=== PATIENT | male | born 1960 | race Two or more races ===

== ENCOUNTER 2023-06-18 11:58 | Inpatient (IN) | payer MEDICARE, OTHER ==
[~2023-06-18] VITALS: Ht 190.5 cm; Wt 135.6 kg
[2023-06-18] MEDS ORDERED: DIGO125T PO (12:44)
[2023-06-18] MEDS ORDERED: INSU100I26 SQ ×2 (12:44)
[2023-06-18] MEDS ORDERED: DIVA125C5 PO (12:44)
[2023-06-18] MEDS ORDERED: DONE10TA44 PO (12:44)
[2023-06-18] MEDS ORDERED: MAGN400O6 PO (12:44)
[2023-06-18] MEDS ORDERED: NA P133E RC (12:44)
[2023-06-18] MEDS ORDERED: FURO20TA4 PO (12:44)
[2023-06-18] MEDS ORDERED: INSU100V39 SQ ×3 (12:44)
[2023-06-18] MEDS ORDERED: BISA10SU11 RC (12:44)
[2023-06-18] MEDS ORDERED: ASCO500T21 PO (12:44)
[2023-06-18] MEDS ORDERED: PANT40TA2 PO (12:44)
[2023-06-18] MEDS ORDERED: TOPI25TA49 PO (12:44)
[2023-06-18] MEDS ORDERED: ACET-868 PO (12:44)
[2023-06-18] MEDS ORDERED: SACU1TAB PO (12:44)
[2023-06-18] MEDS ORDERED: APIX5TAB PO (12:44)
[2023-06-18] MEDS ORDERED: AMIO100T4 PO (12:44)
[2023-06-18] MEDS ORDERED: ATOR20TA PO (12:44)
[2023-06-18] MEDS ORDERED: ESCI10TA PO (12:44)
[2023-06-18] MEDS ORDERED: CALC500T53 PO (12:44)
[2023-06-18] MEDS ORDERED: DIGO250T PO (12:44)
[2023-06-18 12:57] LABS: BASOPHILS % (AUTO) 0.6 % (0.0-2.0); EOSINOPHILS # (AUTO) 0.1 K/uL (0.0-0.7); EOSINOPHILS % (AUTO) 1.2 % (0.0-6.0); HEMATOCRIT 42 % (39-51); HEMOGLOBIN 13.6 g/dL (13.5-17.5); LYMPHOCYTES # (AUTO) 1.3 K/uL (0.8-4.8); LYMPHOCYTES % (AUTO) 18.4 % (20.0-44.0); MEAN CORPUSCULAR HEMOGLOBIN 29 PG (26.0-33.0); MEAN CORPUSCULAR HGB CONC 33 g/dl (31.0-36.0); MEAN CORPUSCULAR VOLUME 89 fL (80-96); MONOCYTES # (AUTO) 0.6 K/uL (0.1-1.30); MONOCYTES % (AUTO) 7.6 % (2.0-12.0); NEUTROPHILS # (AUTO) 5.2 K/uL (1.8-8.9); NEUTROPHILS % (AUTO) 72.2 % (43.0-81.0); PLATELET COUNT (AUTO) 340 K/uL (150-450); RED BLOOD CELL COUNT(AUTO) 4.65 MIL/uL (4.5-6.0); RED CELL DISTRIBUTION WIDTH 14.4 % (11.5-15.0); WHITE BLOOD COUNT (AUTO) 7.2 K/uL (4.3-11.0)
[2023-06-18 13:08] LABS: CARBON DIOXIDE 30 mmol/L (21-32); CHLORIDE 102 mmol/L (98-107); CREATININE 1.5 mg/dL (0.6-1.3); GLUCOSE 263 mg/dL (74-106); POTASSIUM 4.4 mmol/L (3.5-5.1); SODIUM SERUM 138 mmol/L (136-145); UREA NITROGEN, BLOOD 15 mg/dL (7-18)
[2023-06-18 13:13] LABS: ALANINE AMINOTRANSFERASE 20 U/L (12-78); ALBUMIN 2.9 g/dL (3.4-5.0); ALCOHOL, BLOOD < 3 mg/dL (0-10); ALKALINE PHOSPHATASE 108 U/L (46-116); ASPARTATE AMINOTRANSFERASE 9 U/L (15-37); BILIRUBIN,DIRECT 0.1 mg/dL (0.0-0.2); BILIRUBIN,TOTAL 0.2 mg/dL (0.2-1.0); TOTAL PROTEIN, SERUM 7.4 g/dL (6.4-8.2)
[2023-06-18 13:15] LABS: ACETAMINOPHEN <10 ug/ml (10-30); SALICYLATE 0.5 mg/dL (2.8-20.0)
[2023-06-18 15:41] LABS: APPEARANCE,URINE CLEAR (CLEAR); BILIRUBIN,URINE NEGATIVE (NEGATIVE); BLOOD, URINE NEGATIVE Ery/uL (NEGATIVE); COLOR,URINE YELLOW (YELLOW); KETONES,URINE 1+ mg/dL (NEGATIVE); LEUKOCYTE ESTERASE ,URINE NEGATIVE (NEGATIVE); NITRITE, URINE NEGATIVE (NEGATIVE); PH,URINE 6.5 (5.0-8.0); PROTEIN,URINE 2+ mg/dl (NEGATIVE); UGLUCOSE 3+ mg/dL (NEGATIVE)
[2023-06-18 15:55] LABS: AMPHETAMINE, URINE NEGATIVE (NEGATIVE); BARBITURATE, URINE NEGATIVE (NEGATIVE); BENZODIAZEPINE, URINE NEGATIVE (NEGATIVE); CANNABINOID, URINE NEGATIVE (NEGATIVE); COCCAINE, URINE NEGATIVE (NEGATIVE); OPIATE, URINE NEGATIVE (NEGATIVE); PHENCYCLIDINE SCREEN,URINE NEGATIVE (NEGATIVE)
[2023-06-18] MEDS ORDERED: MAG HYDROX/AL HYDROX/SIMETH 30 ML UDC PO PRN (19:00)
[2023-06-18] MEDS ORDERED: ZOLPIDEM TARTRATE 5 MG TABLET PO PRN (19:00)
[2023-06-18] MEDS ORDERED: BLOOD SUGAR DIAGNOSTIC 1 EACH STRIP IN ONE (19:00)
[2023-06-18] MEDS ORDERED: QUETIAPINE FUMARATE 25 MG TABLET PO PRN (19:00)
[2023-06-18] MEDS ORDERED: MAGNESIUM HYDROXIDE 30 ML UDC PO PRN (19:00)
[2023-06-18] MEDS ORDERED: ACETAMINOPHEN 325 MG TABLET PO PRN ×2 (19:00→19:30)
[2023-06-18 19:04] VITALS: BP 156/83; TEMP 98.7; O2SAT 97
[2023-06-18] MEDS ORDERED: INSULIN REGULAR, HUMAN 100 UNIT/ML 3 ML VIAL SQ PRN (19:30)
[2023-06-18] MEDS ORDERED: BISACODYL SUPP (10 MG) 10 MG/SUPP.RECT SUPP.RECT RC PRN (19:30)
[2023-06-18] MEDS ORDERED: DEXTROSE 50%-WATER 50 ML DISP.SYRIN IV PRN ×2 (19:30→20:30)
[2023-06-18 19:37] LABS: ADD URINE CULTURE NO; BACTERIA,URINE None seen /HPF (None Seen); MUCUS,URINE Moderate /LPF (None Seen); RBC,URINE NONE SEEN /HPF (0-2); SQUAMOUS EPITHELIAL CELL,UR None Seen /HPF (None Seen); WBC,URINE NONE SEEN /HPF (0-3)
[2023-06-18 21:24] VITALS: BP 163/74; TEMP 98.2; O2SAT 98
[2023-06-18] MEDS: DONEPEZIL 5 MG TABLET PO SCH (21:45)
[2023-06-18] MEDS: ATORVASTATIN 40 MG TABLET PO SCH (21:45)
[2023-06-18] MEDS: BLOOD SUGAR DIAGNOSTIC 1 EACH STRIP IN SCH (21:54)
[2023-06-18] MEDS: INSULIN REGULAR, HUMAN 100 UNIT/ML 3 ML VIAL SQ PRN (21:58)
[2023-06-18] MEDS ORDERED: BLOOD SUGAR DIAGNOSTIC 1 EACH STRIP IN SCH (22:00)
[2023-06-18] MEDS ORDERED: INSULIN GLARGINE, 100 UNIT/ML CARTRIDGE SQ SCH (22:00)
[2023-06-18 23:00] VITALS: BP 148/83; TEMP 98.2; O2SAT 97
[2023-06-19 08:00] VITALS: BP 142/90; TEMP 97.7; O2SAT 98
[2023-06-19 08:10] LABS: CHOLESTEROL 119 mg/dL (<200); HDL CHOLESTEROL 37 mg/dL (40-60); LDL 55 mg/dL (0-99); TRIGLYCERIDES 197 mg/dL (30-150)
[2023-06-19 08:12] LABS: ALBUMIN 2.6 g/dL (3.4-5.0); BILIRUBIN,TOTAL 0.5 mg/dL (0.2-1.0); CALCIUM, SERUM 8.6 mg/dL (8.5-10.1); CREATININE 1.2 mg/dL (0.6-1.3); POTASSIUM 3.8 mmol/L (3.5-5.1); TOTAL PROTEIN, SERUM 6.8 g/dL (6.4-8.2)
[2023-06-19] MEDS: BLOOD SUGAR DIAGNOSTIC 1 EACH STRIP IN SCH ×4 (08:30→22:21)
[2023-06-19] MEDS: INSULIN REGULAR, HUMAN 100 UNIT/ML 3 ML VIAL SQ PRN ×4 (08:34→22:26)
[2023-06-19] MEDS ORDERED: INSULIN GLARGINE, 100 UNIT/ML CARTRIDGE SQ SCH (09:00)
[2023-06-19] MEDS: ASCORBIC ACID 500 MG TABLET PO SCH (10:22)
[2023-06-19] MEDS: AMIODARONE HCL 200 MG TABLET PO SCH (10:24)
[2023-06-19] MEDS: FUROSEMIDE 20 MG TABLET PO SCH ×2 (10:24→17:25)
[2023-06-19] MEDS: PANTOPRAZOLE 40 MG TABLET.DR PO SCH (10:24)
[2023-06-19] MEDS: CALCIUM CARBONATE (1250) 500 MG TABLET PO SCH (10:24)
[2023-06-19] MEDS: APIXABAN 5 MG TABLET PO SCH ×2 (10:29→17:24)
[2023-06-19] MEDS: SACUBITRIL/VALSARTAN 1 EACH TABLET PO SCH ×2 (10:31→17:26)
[2023-06-19] MEDS: DIGOXIN 0.25 MG TABLET PO SCH (10:32)
[2023-06-19 16:00] VITALS: BP 148/53; TEMP 98.7; O2SAT 97
[2023-06-19] MEDS ORDERED: NEUTRA PHOS 1 POWD.PACKET PO ONE (16:00)
[2023-06-19 16:15] LABS: CREATININE, URINE 81.3 MG/DL (30.0-125.0); URINE TOTAL PROTEIN 86.6 mg/dL (0-11.9)
[2023-06-19] MEDS: risperiDONE 1 MG TABLET PO SCH (17:25)
[2023-06-19 20:24] VITALS: BP 156/77; TEMP 97.7; O2SAT 97
[2023-06-19] MEDS: DONEPEZIL 5 MG TABLET PO SCH (21:37)
[2023-06-19] MEDS: DIVALPROEX SODIUM 125 MG TABLET.DR PO SCH (21:37)
[2023-06-19] MEDS: ATORVASTATIN 40 MG TABLET PO SCH (21:38)
[2023-06-20 08:00] VITALS: BP 145/75; TEMP 98.2; O2SAT 96
[2023-06-20] MEDS: BLOOD SUGAR DIAGNOSTIC 1 EACH STRIP IN SCH ×4 (09:24→22:39)
[2023-06-20] MEDS: risperiDONE 1 MG TABLET PO SCH ×2 (09:24→17:19)
[2023-06-20] MEDS: DIGOXIN 0.25 MG TABLET PO SCH (09:25)
[2023-06-20] MEDS: FUROSEMIDE 20 MG TABLET PO SCH ×2 (09:25→17:19)
[2023-06-20] MEDS: SACUBITRIL/VALSARTAN 1 EACH TABLET PO SCH ×2 (09:26→17:24)
[2023-06-20] MEDS: CALCIUM CARBONATE (1250) 500 MG TABLET PO SCH (09:27)
[2023-06-20] MEDS: DIVALPROEX SODIUM 125 MG TABLET.DR PO SCH ×3 (09:27→21:04)
[2023-06-20] MEDS: ASCORBIC ACID 500 MG TABLET PO SCH (09:27)
[2023-06-20] MEDS: AMIODARONE HCL 200 MG TABLET PO SCH (09:28)
[2023-06-20] MEDS: PANTOPRAZOLE 40 MG TABLET.DR PO SCH (09:40)
[2023-06-20] MEDS: APIXABAN 5 MG TABLET PO SCH ×2 (09:40→17:24)
[2023-06-20] MEDS: INSULIN REGULAR, HUMAN 100 UNIT/ML 3 ML VIAL SQ PRN ×3 (11:29→23:01)
[2023-06-20 16:00] VITALS: BP 130/75; TEMP 97.9; O2SAT 97
[2023-06-20 20:00] VITALS: BP 103/80; TEMP 97.8; O2SAT 96
[2023-06-20] MEDS: ATORVASTATIN 40 MG TABLET PO SCH (22:56)
[2023-06-20] MEDS: DONEPEZIL 5 MG TABLET PO SCH (22:57)
[2023-06-21 08:00] VITALS: BP 120/68; TEMP 97.9; O2SAT 94
[2023-06-21] MEDS: BLOOD SUGAR DIAGNOSTIC 1 EACH STRIP IN SCH ×4 (08:25→22:37)
[2023-06-21] MEDS: ASCORBIC ACID 500 MG TABLET PO SCH (08:42)
[2023-06-21] MEDS: AMIODARONE HCL 200 MG TABLET PO SCH (08:42)
[2023-06-21] MEDS: DIVALPROEX SODIUM 125 MG TABLET.DR PO SCH ×3 (08:42→20:51)
[2023-06-21] MEDS: FUROSEMIDE 20 MG TABLET PO SCH ×2 (08:43→16:20)
[2023-06-21] MEDS: PANTOPRAZOLE 40 MG TABLET.DR PO SCH (08:43)
[2023-06-21] MEDS: AMLODIPINE BESYLATE 2.5 MG TABLET PO SCH (08:43)
[2023-06-21] MEDS: CALCIUM CARBONATE (1250) 500 MG TABLET PO SCH (08:43)
[2023-06-21] MEDS: APIXABAN 5 MG TABLET PO SCH ×2 (08:44→16:20)
[2023-06-21] MEDS: SACUBITRIL/VALSARTAN 1 EACH TABLET PO SCH ×2 (08:49→16:20)
[2023-06-21] MEDS: risperiDONE 1 MG TABLET PO SCH ×2 (08:49→16:19)
[2023-06-21] MEDS: INSULIN REGULAR, HUMAN 100 UNIT/ML 3 ML VIAL SQ PRN ×4 (08:51→22:40)
[2023-06-21] MEDS ORDERED: DIGOXIN 0.125 MG TABLET PO SCH (09:00)
[2023-06-21 16:00] VITALS: BP 127/69; TEMP 98.9; O2SAT 100
[2023-06-21 20:00] VITALS: BP 132/71; TEMP 97.5; O2SAT 96
[2023-06-21] MEDS: DONEPEZIL 5 MG TABLET PO SCH (22:22)
[2023-06-21] MEDS: ATORVASTATIN 40 MG TABLET PO SCH (22:23)
[2023-06-22 07:26] LABS: ALBUMIN 2.6 g/dL (3.4-5.0); BILIRUBIN,TOTAL 0.3 mg/dL (0.2-1.0); CALCIUM, SERUM 8.4 mg/dL (8.5-10.1); CREATININE 1.2 mg/dL (0.6-1.3); POTASSIUM 3.9 mmol/L (3.5-5.1); TOTAL PROTEIN, SERUM 6.8 g/dL (6.4-8.2)
[2023-06-22 08:00] VITALS: BP 137/91; TEMP 98; O2SAT 98
[2023-06-22] MEDS: BLOOD SUGAR DIAGNOSTIC 1 EACH STRIP IN SCH ×2 (08:17→12:50)
[2023-06-22] MEDS: SACUBITRIL/VALSARTAN 1 EACH TABLET PO SCH (08:34)
[2023-06-22] MEDS: FUROSEMIDE 20 MG TABLET PO SCH (08:36)
[2023-06-22] MEDS: AMLODIPINE BESYLATE 2.5 MG TABLET PO SCH (08:36)
[2023-06-22] MEDS: CALCIUM CARBONATE (1250) 500 MG TABLET PO SCH (08:37)
[2023-06-22] MEDS: APIXABAN 5 MG TABLET PO SCH (08:37)
[2023-06-22] MEDS: DIVALPROEX SODIUM 125 MG TABLET.DR PO SCH ×2 (08:37→14:49)
[2023-06-22] MEDS: risperiDONE 1 MG TABLET PO SCH (08:38)
[2023-06-22] MEDS: AMIODARONE HCL 200 MG TABLET PO SCH (08:38)
[2023-06-22] MEDS: PANTOPRAZOLE 40 MG TABLET.DR PO SCH (08:38)
[2023-06-22] MEDS: ASCORBIC ACID 500 MG TABLET PO SCH (08:38)
[2023-06-22] MEDS: INSULIN REGULAR, HUMAN 100 UNIT/ML 3 ML VIAL SQ PRN ×2 (08:40→12:51)
[2023-06-22] MEDS ORDERED: DIGOXIN 0.25 MG TABLET PO SCH (09:00)
[2023-06-22 12:00] VITALS: BP_SYST 80; BP_SYST 87; BP_DIAS 57; BP_DIAS 85; TEMP 98.3; O2SAT 95
[2023-06-22] MEDS ORDERED: IV NS 0.9% 1,000 ML IV ONE (12:30)
[2023-06-22 12:45] VITALS: BP_SYST 102; BP_SYST 108; BP_DIAS 44; BP_DIAS 72
[2023-06-22 13:45] VITALS: BP_SYST 148; BP_SYST 167; BP_DIAS 70; BP_DIAS 75
[2023-06-22 15:00] VITALS: BP 169/83; TEMP 97.7; O2SAT 96
[2023-06-22 16:00] VITALS: BP 167/98; TEMP 97.7; O2SAT 98
[2023-06-22] MEDS ORDERED: INSU100V30 SQ (17:17)
[2023-06-22] MEDS ORDERED: DEXT50DI8 IV (17:17)
[2023-06-22] MEDS ORDERED: BLOO-668 IN (17:17)
[2023-06-22] MEDS ORDERED: INSU100V7 SQ (17:17)
[2023-06-22] MEDS ORDERED: RISP1TAB97 PO (17:17)
[2023-06-22] MEDS ORDERED: AMLO2.5T4 PO (17:17)
[2023-06-22] MEDS ORDERED: MAG30ORA PO (17:17)
[2023-06-22] MEDS ORDERED: DIVA125T32 PO (17:17)
[2023-06-22] MEDS ORDERED: INSULIN GLARGINE, 100 UNIT/ML CARTRIDGE SQ SCH (22:00)
== END 2023-06-22 17:10 | disposition short-term general hospital (02) | DRG 885 ==
LOC: ER 11:58 → GPS 18:33
PROVIDERS: ADMIT Psychiatry & Neurology Psychiatry; ATTEND Nurse Practitioner Acute Care
DX: F31.89 Other bipolar disorder (principal); N17.9 Acute kidney failure, unspecified; N18.9 Chronic kidney disease, unspecified; E11.65 Type 2 diabetes mellitus with hyperglycemia; E44.0 Moderate protein-calorie malnutrition; F03.93 Unspecified dementia, unspecified severity, with mood disturbance; G93.40 Encephalopathy, unspecified; F03.918 Unspecified dementia, unspecified severity, with other behavioral disturbance; E22.2 Syndrome of inappropriate secretion of antidiuretic hormone; I69.354 Hemiplegia and hemiparesis following cerebral infarction affecting left non-dominant side; S06.2XAA Diffuse traumatic brain injury with loss of consciousness status unknown, initial encounter; E66.01 Morbid (severe) obesity due to excess calories; Z68.37 Body mass index [BMI] 37.0-37.9, adult; R29.6 Repeated falls; Z91.81 History of falling; Z86.79 Personal history of other diseases of the circulatory system; Z79.4 Long term (current) use of insulin; Z95.5 Presence of coronary angioplasty implant and graft; Z95.1 Presence of aortocoronary bypass graft; Z87.891 Personal history of nicotine dependence; Z96.652 Presence of left artificial knee joint; I50.9 Heart failure, unspecified; I25.10 Atherosclerotic heart disease of native coronary artery without angina pectoris; I48.91 Unspecified atrial fibrillation; W19.XXXA Unspecified fall, initial encounter; Y93.89 Activity, other specified; Y92.231 Patient bathroom in hospital as the place of occurrence of the external cause; Y99.8 Other external cause status; S00.01XA Abrasion of scalp, initial encounter; M89.8X9 Other specified disorders of bone, unspecified site; Z79.01 Long term (current) use of anticoagulants; Z79.899 Other long term (current) drug therapy
CPT/HCPCS: 36415; 70450-TC; 71045-TC; 73080-TC; 80048-TC; 80053-TC; 80061-TC; 80076-TC; 80164-TC; 81001; 82570-TC; 82962-TC; 83935-TC; 84300-TC; 84484-TC; 85025-TC; 97116-TC; 97530-TC; A4223; G0480; J1815; J7030

== ENCOUNTER 2023-06-22 16:45 | Inpatient (IN) | payer MEDICARE, OTHER ==
[~2023-06-22] VITALS: Ht 180.3 cm; Wt 136.1 kg
[2023-06-22] VITALS (10 sets, daily range): BP systolic 116–184; BP diastolic 66–113; TEMP 98.1; O2SAT 92–98
[~2023-06-22 16:45] MED LIST: ACET-868 PO; AMIO100T4 PO; APIX5TAB PO; ASCO500T21 PO; ATOR20TA PO; BISA10SU11 RC; CALC500T53 PO; DIGO125T PO; DIGO250T PO; DIVA125C5 PO; DONE10TA44 PO; ESCI10TA PO; FURO20TA4 PO; INSU100I26 SQ; INSU100V39 SQ; MAGN400O6 PO; NA P133E RC; PANT40TA2 PO; SACU1TAB PO; TOPI25TA49 PO
[2023-06-22] MEDS ORDERED: INSU100V7 SQ (17:17)
[2023-06-22] MEDS ORDERED: INSU100V30 SQ (17:17)
[2023-06-22] MEDS ORDERED: AMLO2.5T4 PO (17:17)
[2023-06-22] MEDS ORDERED: DEXT50DI8 IV (17:17)
[2023-06-22] MEDS ORDERED: DIVA125T32 PO (17:17)
[2023-06-22] MEDS ORDERED: MAG30ORA PO (17:17)
[2023-06-22] MEDS ORDERED: RISP1TAB97 PO (17:17)
[2023-06-22] MEDS ORDERED: BLOO-668 IN (17:17)
[2023-06-22] MEDS ORDERED: DEXTROSE 50%-WATER 50 ML DISP.SYRIN IV PRN (17:30)
[2023-06-22] MEDS ORDERED: HYDROCODONE/APAP 5/325MG TABLET PO PRN (17:30)
[2023-06-22] MEDS ORDERED: ONDANSETRON HCL/PF 4 MG/2 ML VIAL IVP PRN (17:30)
[2023-06-22] MEDS ORDERED: MAGNESIUM HYDROXIDE 30 ML UDC PO PRN (17:30)
[2023-06-22] MEDS ORDERED: Z GUARD REMEDY 4 OZ OINT TP PRN (17:30)
[2023-06-22] MEDS: BLOOD SUGAR DIAGNOSTIC 1 EACH STRIP IN SCH ×2 (17:30→21:30)
[2023-06-22] MEDS ORDERED: ACETAMINOPHEN 325 MG TABLET PO PRN (17:30)
[2023-06-22] MEDS: INSULIN REGULAR, HUMAN 100 UNIT/ML 3 ML VIAL SQ PRN ×2 (18:35→22:28)
[2023-06-22] MEDS: hydrALAZINE HCL IV 20 MG VIAL IV PRN (18:39)
[2023-06-22] MEDS: DIVALPROEX SODIUM 125 MG TABLET.DR PO SCH (21:24)
[2023-06-22] MEDS ORDERED: ATORVASTATIN 10 MG TABLET PO SCH (22:00)
[2023-06-22] MEDS ORDERED: DONEPEZIL 5 MG TABLET PO SCH (22:00)
[2023-06-22] MEDS ORDERED: INSULIN GLARGINE, 100 UNIT/ML CARTRIDGE SQ SCH (22:00)
[2023-06-23] VITALS (30 sets, daily range): BP systolic 94–172; BP diastolic 37–125; TEMP 97.1–98.3; O2SAT 93–99
[2023-06-23] MEDS: hydrALAZINE HCL IV 20 MG VIAL IV PRN ×2 (02:37→14:06)
[2023-06-23 04:12] LABS: BASOPHILS % (AUTO) 0.4 % (0.0-2.0); EOSINOPHILS # (AUTO) 0.1 K/uL (0.0-0.7); EOSINOPHILS % (AUTO) 1.2 % (0.0-6.0); HEMATOCRIT 38 % (39-51); HEMOGLOBIN 12.8 g/dL (13.5-17.5); LYMPHOCYTES # (AUTO) 1.8 K/uL (0.8-4.8); LYMPHOCYTES % (AUTO) 19.2 % (20.0-44.0); MEAN CORPUSCULAR HEMOGLOBIN 30 PG (26.0-33.0); MEAN CORPUSCULAR HGB CONC 34 g/dl (31.0-36.0); MEAN CORPUSCULAR VOLUME 88 fL (80-96); MONOCYTES # (AUTO) 0.7 K/uL (0.1-1.30); MONOCYTES % (AUTO) 7.5 % (2.0-12.0); NEUTROPHILS # (AUTO) 6.6 K/uL (1.8-8.9); NEUTROPHILS % (AUTO) 71.7 % (43.0-81.0); PLATELET COUNT (AUTO) 323 K/uL (150-450); RED BLOOD CELL COUNT(AUTO) 4.34 MIL/uL (4.5-6.0); RED CELL DISTRIBUTION WIDTH 13.6 % (11.5-15.0); WHITE BLOOD COUNT (AUTO) 9.2 K/uL (4.3-11.0)
[2023-06-23 04:20] LABS: CALCIUM, SERUM 8.7 mg/dL (8.5-10.1); CREATININE 1.2 mg/dL (0.6-1.3); PHOSPHORUS 3.1 mg/dL (2.5-4.9); POTASSIUM 3.9 mmol/L (3.5-5.1)
[2023-06-23] MEDS ORDERED: PANTOPRAZOLE 40 MG TABLET.DR PO SCH (07:30)
[2023-06-23] MEDS: INSULIN REGULAR, HUMAN 100 UNIT/ML 3 ML VIAL SQ PRN ×3 (08:16→16:38)
[2023-06-23] MEDS: BLOOD SUGAR DIAGNOSTIC 1 EACH STRIP IN SCH ×3 (08:21→16:36)
[2023-06-23] MEDS: DIVALPROEX SODIUM 125 MG TABLET.DR PO SCH ×2 (08:25→13:09)
[2023-06-23] MEDS: risperiDONE 1 MG TABLET PO SCH ×2 (08:25→16:22)
[2023-06-23] MEDS: SACUBITRIL/VALSARTAN 1 EACH TABLET PO SCH ×2 (08:26→16:22)
[2023-06-23] MEDS ORDERED: AMIODARONE HCL 200 MG TABLET PO SCH (09:00)
[2023-06-23] MEDS ORDERED: DIGOXIN 0.125 MG TABLET PO SCH (09:00)
[2023-06-23] MEDS ORDERED: ASCORBIC ACID 500 MG TABLET PO SCH (09:00)
[2023-06-23] MEDS ORDERED: AMLODIPINE BESYLATE 2.5 MG TABLET PO SCH (09:00)
[2023-06-23] MEDS ORDERED: LEVETIRACETAM (250 MG) 250 MG TABLET PO SCH (13:00)
[2023-06-25] MEDS ORDERED: DIGOXIN 0.125 MG TABLET PO SCH (09:00)
== END 2023-06-23 19:30 | disposition short-term general hospital (02) | DRG 86 ==
LOC: ICU 16:45
PROVIDERS: ADMIT Nurse Practitioner Family; ATTEND Nurse Practitioner Family
PROC: 30233K1 Transfusion of Nonautologous Frozen Plasma into Peripheral Vein, Percutaneous Approach (ICD-10-PCS; principal; 2023-06-22)
DX: S06.360A Traumatic hemorrhage of cerebrum, unspecified, without loss of consciousness, initial encounter (principal); E44.0 Moderate protein-calorie malnutrition; E87.1 Hypo-osmolality and hyponatremia; G93.49 Other encephalopathy; F03.93 Unspecified dementia, unspecified severity, with mood disturbance; F03.94 Unspecified dementia, unspecified severity, with anxiety; N17.9 Acute kidney failure, unspecified; I69.354 Hemiplegia and hemiparesis following cerebral infarction affecting left non-dominant side; F03.92 Unspecified dementia, unspecified severity, with psychotic disturbance; G93.89 Other specified disorders of brain; R79.89 Other specified abnormal findings of blood chemistry; F31.9 Bipolar disorder, unspecified; I25.10 Atherosclerotic heart disease of native coronary artery without angina pectoris; F41.9 Anxiety disorder, unspecified; F29 Unspecified psychosis not due to a substance or known physiological condition; E66.01 Morbid (severe) obesity due to excess calories; Z68.37 Body mass index [BMI] 37.0-37.9, adult; E11.65 Type 2 diabetes mellitus with hyperglycemia; N18.9 Chronic kidney disease, unspecified; E11.22 Type 2 diabetes mellitus with diabetic chronic kidney disease; Z91.81 History of falling; Z86.79 Personal history of other diseases of the circulatory system; Z87.891 Personal history of nicotine dependence; Z79.4 Long term (current) use of insulin; Z79.01 Long term (current) use of anticoagulants; Z95.1 Presence of aortocoronary bypass graft; Z95.5 Presence of coronary angioplasty implant and graft; Z96.659 Presence of unspecified artificial knee joint; W19.XXXA Unspecified fall, initial encounter; Y92.9 Unspecified place or not applicable; I48.91 Unspecified atrial fibrillation; I50.9 Heart failure, unspecified; G47.33 Obstructive sleep apnea (adult) (pediatric); F39 Unspecified mood [affective] disorder; Z79.899 Other long term (current) drug therapy
CPT/HCPCS: 36415; 70450-TC; 80048-TC; 83735-TC; 84100-TC; 85025-TC; 86850-TC; 87081-TC; 97116-TC; 97530-TC; G0378; J0360; J1815; J7050; P9017

== ENCOUNTER 2023-06-28 23:39 | Inpatient (IN) | payer MEDICARE, OTHER ==
[~2023-06-28] VITALS: Ht 175.3 cm; Wt 136.5 kg
[~2023-06-28 23:39] MED LIST changes: +AMLO2.5T4 PO; +BLOO-668 IN; +DEXT50DI8 IV; -DIVA125C5 PO; +DIVA125T32 PO; -ESCI10TA PO; -FURO20TA4 PO; -INSU100I26 SQ; +INSU100V30 SQ; -INSU100V39 SQ; +INSU100V7 SQ; +MAG30ORA PO; -NA P133E RC; +RISP1TAB97 PO; -TOPI25TA49 PO
[2023-06-29] MEDS ORDERED: DEXTROSE 50%-WATER 50 ML DISP.SYRIN IV PRN (05:30)
[2023-06-29] MEDS ORDERED: MAG HYDROX/AL HYDROX/SIMETH 30 ML UDC PO PRN ×2 (05:30)
[2023-06-29] MEDS ORDERED: Z GUARD REMEDY 4 OZ OINT TP PRN (05:30)
[2023-06-29] MEDS ORDERED: MAGNESIUM HYDROXIDE 30 ML UDC PO PRN ×2 (05:30)
[2023-06-29] MEDS ORDERED: ACETAMINOPHEN 325 MG TABLET PO PRN (05:30)
[2023-06-29] MEDS ORDERED: BISACODYL SUPP (10 MG) 10 MG/SUPP.RECT SUPP.RECT RC PRN (05:30)
[2023-06-29] MEDS ORDERED: ONDANSETRON HCL/PF 4 MG/2 ML VIAL IVP PRN (05:30)
[2023-06-29] MEDS ORDERED: ZOLPIDEM TARTRATE 5 MG TABLET PO PRN (05:30)
[2023-06-29] MEDS ORDERED: FURO40TA5 PO (06:32)
[2023-06-29] MEDS ORDERED: ESCI10TA PO (06:32)
[2023-06-29] MEDS ORDERED: LEVE500V IV (06:32)
[2023-06-29] MEDS ORDERED: TOPI50TA24 PO (06:33)
[2023-06-29] MEDS: BLOOD SUGAR DIAGNOSTIC 1 EACH STRIP IN SCH ×4 (06:57→21:01)
[2023-06-29] MEDS: INSULIN REGULAR, HUMAN 100 UNIT/ML 3 ML VIAL SQ PRN ×4 (06:58→22:34)
[2023-06-29 08:02] LABS: BASOPHILS % (AUTO) 0.3 % (0.0-2.0); EOSINOPHILS # (AUTO) 0.2 K/uL (0.0-0.7); EOSINOPHILS % (AUTO) 3.1 % (0.0-6.0); HEMATOCRIT 38 % (39-51); HEMOGLOBIN 12.7 g/dL (13.5-17.5); LYMPHOCYTES # (AUTO) 1.5 K/uL (0.8-4.8); LYMPHOCYTES % (AUTO) 19.7 % (20.0-44.0); MEAN CORPUSCULAR HEMOGLOBIN 29 PG (26.0-33.0); MEAN CORPUSCULAR HGB CONC 33 g/dl (31.0-36.0); MEAN CORPUSCULAR VOLUME 89 fL (80-96); MONOCYTES # (AUTO) 0.6 K/uL (0.1-1.30); MONOCYTES % (AUTO) 7.4 % (2.0-12.0); NEUTROPHILS # (AUTO) 5.2 K/uL (1.8-8.9); NEUTROPHILS % (AUTO) 69.5 % (43.0-81.0); PLATELET COUNT (AUTO) 383 K/uL (150-450); RED BLOOD CELL COUNT(AUTO) 4.33 MIL/uL (4.5-6.0); RED CELL DISTRIBUTION WIDTH 13.6 % (11.5-15.0); WHITE BLOOD COUNT (AUTO) 7.5 K/uL (4.3-11.0)
[2023-06-29 08:53] LABS: CALCIUM, SERUM 8.5 mg/dL (8.5-10.1); CREATININE 1.2 mg/dL (0.6-1.3); MAGNESIUM 2.2 mg/dL (1.8-2.4); PHOSPHORUS 3.3 mg/dL (2.5-4.9); POTASSIUM 3.6 mmol/L (3.5-5.1)
[2023-06-29] MEDS: ASCORBIC ACID 500 MG TABLET PO SCH (09:52)
[2023-06-29] MEDS: CALCIUM CARBONATE (1250) 500 MG TABLET PO SCH (09:52)
[2023-06-29] MEDS: DIVALPROEX SODIUM 125 MG TABLET.DR PO SCH ×3 (09:52→21:03)
[2023-06-29] MEDS: PANTOPRAZOLE 40 MG TABLET.DR PO SCH (09:53)
[2023-06-29] MEDS: AMLODIPINE BESYLATE 2.5 MG TABLET PO SCH (09:53)
[2023-06-29] MEDS: AMIODARONE HCL 200 MG TABLET PO SCH (09:53)
[2023-06-29] MEDS: risperiDONE 1 MG TABLET PO SCH ×2 (09:53→17:50)
[2023-06-29] MEDS: SACUBITRIL/VALSARTAN 1 EACH TABLET PO SCH ×2 (09:54→17:55)
[2023-06-29] MEDS ORDERED: DIGOXIN 0.125 MG TABLET PO SCH (13:00)
[2023-06-29] MEDS ORDERED: DIGOXIN 0.25 MG TABLET PO SCH (13:00)
[2023-06-29] MEDS: LEVETIRACETAM (250 MG) 250 MG TABLET PO SCH ×2 (14:53→21:03)
[2023-06-29 20:00] VITALS: BP 135/82; TEMP 98.1; O2SAT 100
[2023-06-29] MEDS ORDERED: INSULIN GLARGINE, 100 UNIT/ML CARTRIDGE SQ SCH (22:00)
[2023-06-29] MEDS ORDERED: ATORVASTATIN 10 MG TABLET PO SCH (22:00)
[2023-06-29] MEDS ORDERED: DONEPEZIL 5 MG TABLET PO SCH (22:00)
[2023-06-30] MEDS: BLOOD SUGAR DIAGNOSTIC 1 EACH STRIP IN SCH ×2 (06:14→13:26)
[2023-06-30] MEDS: INSULIN REGULAR, HUMAN 100 UNIT/ML 3 ML VIAL SQ PRN ×2 (06:51→13:28)
[2023-06-30 07:34] LABS: BASOPHILS % (AUTO) 0.6 % (0.0-2.0); EOSINOPHILS # (AUTO) 0.2 K/uL (0.0-0.7); HEMATOCRIT 37 % (39-51); HEMOGLOBIN 12.4 g/dL (13.5-17.5); LYMPHOCYTES # (AUTO) 1.8 K/uL (0.8-4.8); LYMPHOCYTES % (AUTO) 22.5 % (20.0-44.0); MEAN CORPUSCULAR HEMOGLOBIN 30 PG (26.0-33.0); MEAN CORPUSCULAR HGB CONC 34 g/dl (31.0-36.0); MEAN CORPUSCULAR VOLUME 88 fL (80-96); MONOCYTES # (AUTO) 0.6 K/uL (0.1-1.30); MONOCYTES % (AUTO) 7.9 % (2.0-12.0); NEUTROPHILS # (AUTO) 5.2 K/uL (1.8-8.9); PLATELET COUNT (AUTO) 366 K/uL (150-450); RED BLOOD CELL COUNT(AUTO) 4.16 MIL/uL (4.5-6.0); RED CELL DISTRIBUTION WIDTH 13.7 % (11.5-15.0); WHITE BLOOD COUNT (AUTO) 7.8 K/uL (4.3-11.0)
[2023-06-30 08:24] LABS: CALCIUM, SERUM 9.1 mg/dL (8.5-10.1); CREATININE 1.3 mg/dL (0.6-1.3); PHOSPHORUS 3.6 mg/dL (2.5-4.9); POTASSIUM 3.5 mmol/L (3.5-5.1)
[2023-06-30] MEDS: LEVETIRACETAM (250 MG) 250 MG TABLET PO SCH (08:41)
[2023-06-30] MEDS: DIVALPROEX SODIUM 125 MG TABLET.DR PO SCH ×2 (08:41→13:26)
[2023-06-30] MEDS: risperiDONE 1 MG TABLET PO SCH (08:42)
[2023-06-30] MEDS: ASCORBIC ACID 500 MG TABLET PO SCH (08:42)
[2023-06-30] MEDS: CALCIUM CARBONATE (1250) 500 MG TABLET PO SCH (08:42)
[2023-06-30] MEDS: PANTOPRAZOLE 40 MG TABLET.DR PO SCH (08:42)
[2023-06-30] MEDS: AMIODARONE HCL 200 MG TABLET PO SCH (08:50)
[2023-06-30] MEDS: AMLODIPINE BESYLATE 2.5 MG TABLET PO SCH (08:51)
[2023-06-30] MEDS ORDERED: ESCITALOPRAM OXALATE (10 MG) 10 MG TABLET PO SCH (09:00)
[2023-06-30] MEDS: SACUBITRIL/VALSARTAN 1 EACH TABLET PO SCH (09:00)
[2023-06-30] MEDS ORDERED: TOPIRAMATE 25 MG TABLET PO SCH (09:00)
[2023-06-30 09:58] VITALS: BP 98/60; TEMP 98.1; O2SAT 100
[2023-06-30 09:59] LABS: THYROID STIMULATING HORMONE 0.993 uIU/mL (0.358-3.74)
[2023-06-30] MEDS ORDERED: LEVE500T20 PO (16:33)
[2023-06-30] MEDS ORDERED: ZOLP5TAB8 PO (16:33)
[2023-06-30] MEDS ORDERED: RISP0.2515 PO (16:33)
[2023-06-30] MEDS ORDERED: CALC500T52 PO (16:33)
[2023-06-30] MEDS ORDERED: ASCO-352 PO (16:33)
[2023-06-30] MEDS ORDERED: DIVA125C5 PO (16:33)
[2023-06-30] MEDS ORDERED: ALLA266C2 TP (16:33)
== END 2023-06-30 16:45 | DRG 86 ==
LOC: MED 23:39
PROVIDERS: ADMIT Nurse Practitioner Family; ATTEND Nurse Practitioner Family
DX: S06.340A Traumatic hemorrhage of right cerebrum without loss of consciousness, initial encounter (principal); E44.0 Moderate protein-calorie malnutrition; E87.1 Hypo-osmolality and hyponatremia; G93.49 Other encephalopathy; Z68.41 Body mass index [BMI] 40.0-44.9, adult; F03.93 Unspecified dementia, unspecified severity, with mood disturbance; F03.94 Unspecified dementia, unspecified severity, with anxiety; F03.918 Unspecified dementia, unspecified severity, with other behavioral disturbance; D64.9 Anemia, unspecified; E11.65 Type 2 diabetes mellitus with hyperglycemia; E66.01 Morbid (severe) obesity due to excess calories; F41.9 Anxiety disorder, unspecified; F31.9 Bipolar disorder, unspecified; G93.89 Other specified disorders of brain; I48.91 Unspecified atrial fibrillation; I25.10 Atherosclerotic heart disease of native coronary artery without angina pectoris; F39 Unspecified mood [affective] disorder; I10 Essential (primary) hypertension; Z73.6 Limitation of activities due to disability; I50.9 Heart failure, unspecified; Z91.81 History of falling; Z79.01 Long term (current) use of anticoagulants; Z87.891 Personal history of nicotine dependence; Z95.1 Presence of aortocoronary bypass graft; Z95.5 Presence of coronary angioplasty implant and graft; N18.9 Chronic kidney disease, unspecified; E11.22 Type 2 diabetes mellitus with diabetic chronic kidney disease
CPT/HCPCS: 36415; 80048-TC; 80061-TC; 80162-TC; 82962-TC; 83735-TC; 84100-TC; 84439-TC; 84443-TC; 85025-TC; 87081-TC; 93307-TC; 97110-TC; 97530-TC; G0378; J1815

== ENCOUNTER 2023-06-30 15:11 | Inpatient (IN) | payer MEDICARE, OTHER ==
[~2023-06-30] VITALS: Ht 175.3 cm; Wt 136.5 kg
[~2023-06-30 15:11] MED LIST changes: +ESCI10TA PO; +FURO40TA5 PO; +LEVE500V IV; +TOPI50TA24 PO
[2023-06-30] MEDS ORDERED: RISP0.2515 PO (16:33)
[2023-06-30] MEDS ORDERED: ZOLP5TAB8 PO (16:33)
[2023-06-30] MEDS ORDERED: CALC500T52 PO (16:33)
[2023-06-30] MEDS ORDERED: LEVE500T20 PO (16:33)
[2023-06-30] MEDS ORDERED: ALLA266C2 TP (16:33)
[2023-06-30] MEDS ORDERED: ASCO-352 PO (16:33)
[2023-06-30] MEDS ORDERED: DIVA125C5 PO (16:33)
[2023-06-30] MEDS ORDERED: ACETAMINOPHEN 325 MG TABLET PO PRN (18:30)
[2023-06-30] MEDS ORDERED: ZOLPIDEM TARTRATE 5 MG TABLET PO PRN (18:30)
[2023-06-30] MEDS ORDERED: MAGNESIUM HYDROXIDE 30 ML UDC PO PRN (18:30)
[2023-06-30] MEDS ORDERED: MAG HYDROX/AL HYDROX/SIMETH 30 ML UDC PO PRN (18:30)
[2023-06-30] MEDS ORDERED: BLOOD SUGAR DIAGNOSTIC 1 EACH STRIP IN ONE (18:30)
[2023-06-30] MEDS ORDERED: QUETIAPINE FUMARATE 25 MG TABLET PO PRN (18:30)
[2023-06-30] MEDS ORDERED: INSULIN REGULAR, HUMAN 100 UNIT/ML 3 ML VIAL SQ PRN (19:30)
[2023-06-30] MEDS ORDERED: DEXTROSE 50%-WATER 50 ML DISP.SYRIN IV PRN (19:30)
[2023-06-30] MEDS ORDERED: BISACODYL SUPP (10 MG) 10 MG/SUPP.RECT SUPP.RECT RC PRN (19:30)
[2023-06-30 21:43] VITALS: BP_SYST 143; BP_SYST 163; BP_DIAS 84; BP_DIAS 97; TEMP 98.1; O2SAT 96
[2023-06-30] MEDS: ATORVASTATIN 10 MG TABLET PO SCH (21:46)
[2023-06-30] MEDS: BLOOD SUGAR DIAGNOSTIC 1 EACH STRIP IN SCH (21:51)
[2023-06-30] MEDS: INSULIN GLARGINE, 100 UNIT/ML CARTRIDGE SQ SCH (21:54)
[2023-07-01 07:14] LABS: ALBUMIN 2.6 g/dL (3.4-5.0); BILIRUBIN,TOTAL 0.5 mg/dL (0.2-1.0); CALCIUM, SERUM 8.6 mg/dL (8.5-10.1); CREATININE 1.4 mg/dL (0.6-1.3); POTASSIUM 3.7 mmol/L (3.5-5.1); TOTAL PROTEIN, SERUM 7.1 g/dL (6.4-8.2)
[2023-07-01 07:48] LABS: THYROID STIMULATING HORMONE 0.763 uIU/mL (0.358-3.74)
[2023-07-01 08:00] VITALS: BP 147/80; TEMP 98.7; O2SAT 98
[2023-07-01] MEDS: BLOOD SUGAR DIAGNOSTIC 1 EACH STRIP IN SCH ×4 (08:18→21:18)
[2023-07-01] MEDS: CALCIUM CARBONATE (1250) 500 MG TABLET PO SCH (08:18)
[2023-07-01] MEDS: AMLODIPINE BESYLATE 2.5 MG TABLET PO SCH (08:18)
[2023-07-01] MEDS: PANTOPRAZOLE 40 MG TABLET.DR PO SCH (08:18)
[2023-07-01] MEDS: AMIODARONE HCL 200 MG TABLET PO SCH (08:19)
[2023-07-01] MEDS: TOPIRAMATE 25 MG TABLET PO SCH (08:19)
[2023-07-01] MEDS: ASCORBIC ACID 500 MG TABLET PO SCH (08:20)
[2023-07-01] MEDS: LEVETIRACETAM (250 MG) 250 MG TABLET PO SCH ×2 (08:20→20:40)
[2023-07-01 09:18] LABS: CREATININE 1.4 mg/dL (0.6-1.3)
[2023-07-01] MEDS: SACUBITRIL/VALSARTAN 1 EACH TABLET PO SCH ×2 (09:33→20:41)
[2023-07-01] MEDS: DIVALPROEX SODIUM 125 MG CAP.SPRINK PO SCH ×3 (09:33→20:40)
[2023-07-01 15:23] LABS: APPEARANCE,URINE CLOUDY (CLEAR); BILIRUBIN,URINE NEGATIVE (NEGATIVE); BLOOD, URINE NEGATIVE Ery/uL (NEGATIVE); COLOR,URINE YELLOW (YELLOW); KETONES,URINE 1+ mg/dL (NEGATIVE); LEUKOCYTE ESTERASE ,URINE NEGATIVE (NEGATIVE); NITRITE, URINE NEGATIVE (NEGATIVE); PROTEIN,URINE 3+ mg/dl (NEGATIVE); UGLUCOSE NEGATIVE (NEGATIVE)
[2023-07-01 16:00] VITALS: BP 152/86; TEMP 98.7; O2SAT 94
[2023-07-01 16:38] LABS: ADD URINE CULTURE NO; BACTERIA,URINE None seen /HPF (None Seen); MUCUS,URINE Few /LPF (None Seen); RBC,URINE 0-2 /HPF (0-2); SQUAMOUS EPITHELIAL CELL,UR 0-2 /HPF (None Seen); WBC,URINE 0-2 /HPF (0-3)
[2023-07-01] MEDS: risperiDONE 1 MG TABLET PO SCH (17:30)
[2023-07-01 20:34] VITALS: BP 139/79; TEMP 97.5; O2SAT 97
[2023-07-01] MEDS: ATORVASTATIN 10 MG TABLET PO SCH (21:06)
[2023-07-01] MEDS: INSULIN GLARGINE, 100 UNIT/ML CARTRIDGE SQ SCH (21:24)
[2023-07-01] MEDS ORDERED: DONEPEZIL 5 MG TABLET PO SCH (22:00)
[2023-07-02 08:00] VITALS: BP 139/79; TEMP 97.8; O2SAT 94
[2023-07-02] MEDS: BLOOD SUGAR DIAGNOSTIC 1 EACH STRIP IN SCH (08:03)
[2023-07-02] MEDS: risperiDONE 1 MG TABLET PO SCH (08:14)
[2023-07-02] MEDS: ASCORBIC ACID 500 MG TABLET PO SCH (08:14)
[2023-07-02] MEDS: CALCIUM CARBONATE (1250) 500 MG TABLET PO SCH (08:14)
[2023-07-02] MEDS: PANTOPRAZOLE 40 MG TABLET.DR PO SCH (08:15)
[2023-07-02] MEDS: DIVALPROEX SODIUM 125 MG CAP.SPRINK PO SCH (08:15)
[2023-07-02] MEDS: LEVETIRACETAM (250 MG) 250 MG TABLET PO SCH (08:15)
[2023-07-02] MEDS: TOPIRAMATE 25 MG TABLET PO SCH (08:16)
[2023-07-02] MEDS: AMIODARONE HCL 200 MG TABLET PO SCH (08:16)
[2023-07-02 08:17] VITALS: BP 139/79
[2023-07-02] MEDS: AMLODIPINE BESYLATE 2.5 MG TABLET PO SCH (08:17)
[2023-07-02] MEDS: SACUBITRIL/VALSARTAN 1 EACH TABLET PO SCH (08:31)
== END 2023-07-02 11:55 | DRG 885 ==
LOC: GPS 15:11
PROVIDERS: ADMIT Psychiatry & Neurology Psychiatry; ATTEND Student in an Organized Health Care Education/Training Program
DX: F31.9 Bipolar disorder, unspecified (principal); N18.9 Chronic kidney disease, unspecified; E11.65 Type 2 diabetes mellitus with hyperglycemia; I62.00 Nontraumatic subdural hemorrhage, unspecified; F03.93 Unspecified dementia, unspecified severity, with mood disturbance; F03.94 Unspecified dementia, unspecified severity, with anxiety; F03.92 Unspecified dementia, unspecified severity, with psychotic disturbance; E44.0 Moderate protein-calorie malnutrition; E87.1 Hypo-osmolality and hyponatremia; G93.49 Other encephalopathy; I69.354 Hemiplegia and hemiparesis following cerebral infarction affecting left non-dominant side; F29 Unspecified psychosis not due to a substance or known physiological condition; F41.9 Anxiety disorder, unspecified; E11.9 Type 2 diabetes mellitus without complications; Z20.822 Contact with and (suspected) exposure to COVID-19; F39 Unspecified mood [affective] disorder; I25.10 Atherosclerotic heart disease of native coronary artery without angina pectoris; I48.91 Unspecified atrial fibrillation; I50.9 Heart failure, unspecified; E11.22 Type 2 diabetes mellitus with diabetic chronic kidney disease; Z96.659 Presence of unspecified artificial knee joint; Z95.5 Presence of coronary angioplasty implant and graft; Z87.891 Personal history of nicotine dependence; Z79.4 Long term (current) use of insulin; Z79.899 Other long term (current) drug therapy; Z79.01 Long term (current) use of anticoagulants; Z86.79 Personal history of other diseases of the circulatory system; E66.01 Morbid (severe) obesity due to excess calories; Z68.37 Body mass index [BMI] 37.0-37.9, adult; Z95.1 Presence of aortocoronary bypass graft; G93.89 Other specified disorders of brain; D64.9 Anemia, unspecified; R79.89 Other specified abnormal findings of blood chemistry; Z91.81 History of falling; F15.91 Other stimulant use, unspecified, in remission
CPT/HCPCS: 36415; 80053-TC; 80061-TC; 81001; 82565-TC; 82962-TC; 84439-TC; 84443-TC; J1815